=== PATIENT | female | born 1980 | race Caucasian/White ===

== ENCOUNTER 2018-05-01 16:20 | Emergency (ER) | END 2018-05-01 17:55 | disposition home or self-care (01) ==

== ENCOUNTER 2018-11-22 04:25 | Outpatient (CLI) | payer SELFPAY ==
[~2018-11-22] VITALS: Ht 154.9 cm; Wt 117.2 kg
[~2018-11-22 04:25] MED LIST: ACET500C5 PO
[2018-11-22 04:33] VITALS: Ht 154.9 cm; Wt 117.2 kg
[2018-11-22 04:46] VITALS: BP 139/75; PULSE 80; RESP 20
--- NOTE | 2018-11-22 07:37 | PN ---
Triage Information Date/Time Reason for visit: leg pain Weeks of Gestation 31+ /Para n/a Diabetes: none Hypertention: none Objective Vital Signs Date Temp Pulse Resp B/P (MAP) Pulse Ox O2 O2 Flow FiO2 Time Delivery Rate 11/22/18 99.1 80 20 139/75 Room Air 04:46 (96) Heart Rate: 140's Contractions: None Results/Medications Result Diagram: 11/22/18 0518 Results 24 hrs Laboratory Tests Test 11/22/18 04:40 11/22/18 05:18 Urine Color YELLOW Urine Clarity SLIGHTLY CLOUDY A Urine pH 6.0 Urine Specific [place] 1.024 Urine Ketones NEGATIVE Urine Nitrite NEGATIVE Urine Bilirubin NEGATIVE Urine Urobilinogen 1+ H Urine Leukocyte Esterase 2+ H Urine Microscopic RBC 79 H Urine Microscopic WBC 5 Urine Squamous Epithelial Cells FEW Urine Calcium Oxalate Crystals MANY A Urine Bacteria FEW A Urine Mucus FEW A Urine Hemoglobin 2+ H Urine Glucose NEGATIVE Urine Total Protein NEGATIVE Urine Opiates Screen Negative Urine Barbiturates Negative Urine Amphetamines Screen POSITIVE Urine Benzodiazepines Screen NEGATIVE Urine Cocaine Screen Negative Urine Cannabinoids NEGATIVE White Blood Count 11.2 H Red Blood Count 3.50 L Hemoglobin 9.0 L Hematocrit 28.8 L Mean Corpuscular Volume 82.3 Mean Corpuscular Hemoglobin 25.7 L Mean Corpuscular Hemoglobin Concent 31.3 L Red Cell Distribution Width 13.2 Platelet Count 209 Mean Platelet Volume 13.2 H Immature Granulocytes % 0.500 H Neutrophils % 72.9 Lymphocytes % 17.9 Monocytes % 7.4 Eosinophils % 1.0 Basophils % 0.3 Nucleated Red Blood Cells % 0.0 Immature Granulocytes # 0.060 H Neutrophils # 8.1 H Lymphocytes # 2.0 Monocytes # 0.8 Eosinophils # 0.1 Basophils # 0.0 Nucleated Red Blood Cells # 0.0 Hepatitis B Surface Antigen NEGATIVE HIV (1&2) Antibody NEGATIVE Disposition: Discharge Assessment/Plan Labs reviewed Ultrasound reviewed BPP 01/19 Patient is in [place] to leave the hospital to collect her stuff as she is homeless patient can be discharged after social service counselling Questions answered Precautions discussed Return to hospital in 2 days for NST BPP She needs to start care KIMI BONILLA M.D. Nov 22, 2018 07:37
== END 2018-11-22 08:22 | disposition home or self-care (01) ==
LOC: OBT 04:25 → L-D 04:25 → OBT 08:22
PROVIDERS: ATTEND Obstetrics & Gynecology
DX: O26.893 Other specified pregnancy related conditions, third trimester (principal); M79.606 Pain in leg, unspecified; O09.513 Supervision of elderly primigravida, third trimester; Z3A.31 31 weeks gestation of pregnancy; Z59.0 Homelessness
CPT/HCPCS: 76815; 76818; 80307; 81001; 85025; 86592; 86703; 86762; 86900; 86901; 87340; 87591; 93970; G0463

== ENCOUNTER 2018-11-28 01:55 | Inpatient (IN) | payer MEDICAID ==
[~2018-11-28] VITALS: Ht 154.9 cm; Wt 117.7 kg
[2018-11-28 02:00] VITALS: Ht 154.9 cm; Wt 117.7 kg
[2018-11-28 02:18] VITALS: BP 134/72; PULSE 72; RESP 19
[2018-11-28] MEDS ORDERED: SOD CHLORIDE 0.9% 1,000 ML IV SCH (03:10)
[2018-11-28] MEDS ORDERED: CEFTRIAXONE 1 GM INJ IM ONE (03:30)
[2018-11-28] MEDS ORDERED: CEFTRIAXONE 1 GM/50 ML (PMX) 50 ML IVPB SCH (03:30)
[2018-11-28] MEDS ORDERED: ACETAMINOPHEN 325 MG TAB PO PRN (03:30)
[2018-11-28] MEDS ORDERED: AL HYDROX/MG HYDROX/SIMETH 30 ML CUP PO ONE (04:00)
--- NOTE | 2018-11-28 04:15 | HP ---
Date/Time of Note Date/Time of Note DATE: 11/28/18 TIME: 04:10 OB - History Hx of Present Free Text/Dictation Patient is a 38-year-old 2 para 1 at 35 weeks of gestation with estimated date of delivery January 02, 2019 Patient is homeless and presents after using methamphetamine earlier today She is complaining of chest pain and abdominal pain, denies any shortness of breath, O2 sat 100% in room air Patient reports positive movement, denies vaginal bleeding or leaking fluid, denies uterine contractions She is complaining of bilateral lower extremity swelling and pain She reports of a history of urinary tract infections Estimated Due Date: Jan 02, 2019 : 2 Para: 1 Care: None Past Family/Social History * Past Medical, Surgical, Family history noncontributory to this admission OB Admission Exam Vital Signs Vital Signs Vital Signs Date Temp Pulse Resp B/P (MAP) Pulse Ox O2 O2 Flow FiO2 Time Delivery Rate 11/28/18 98.3 72 19 134/72 100 Room Air 02:18 (92) Physical Exam HEENT: WNL Heart: Rhythm Normal Lungs: Clear, Equal Abdomen: WNL Extremities: Normal Reflexes: Normal Heart Rate: 140's Accelerations: Accelerations Present Decelerations: No Decelerations Varibility: Moderate Contractions on Admission: None Last 72 hours Lab Results EKG within normal limits Toxicology - Last Results Test 11/28/18 02:24 Urine Opiates Screen NEGATIVE (NEGATIVE) Urine Barbiturates NEGATIVE (NEGATIVE) Urine Amphetamines Screen POSITIVE (NEGATIVE) Urine Benzodiazepines Screen NEGATIVE (NEGATIVE) Urine Cocaine Screen NEGATIVE (NEGATIVE) Urine Cannabinoids NEGATIVE (NEGATIVE) Urine Results - 72 Hrs Test 11/28/18 02:24 Urine Color YELLOW (YELLOW) Urine Clarity CLOUDY (CLEAR) A Urine pH 6.0 (5.0-9.0) Urine Specific [place] 1.021 (1.003-1.030) Urine Ketones NEGATIVE mg/dL (NEGATIVE) Urine Nitrite NEGATIVE mg/dL (NEGATIVE) Urine Bilirubin NEGATIVE mg/dL (NEGATIVE) Urine Urobilinogen 1+ mg/dL (NEGATIVE) H Urine Leukocyte Esterase 3+ Frederic/ul (NEGATIVE) H Urine Microscopic RBC 8 /HPF (0-5) H Urine Microscopic WBC 28 /HPF (0-5) H Urine Squamous Epithelial Cells MODERATE /HPF (FEW) Urine Bacteria FEW /HPF (NONE SEEN) A Urine Mucus FEW /HPF (NONE SEEN) A Urine Hemoglobin NEGATIVE mg/dL (NEGATIVE) Urine Glucose NEGATIVE mg/dL (NEGATIVE) Urine Total Protein NEGATIVE mg/dl (NEGATIVE) Hematology - 72 Hrs Test 11/28/18 04:39 Hematocrit 30.4 % (37.0-47.0) L Hemoglobin 9.4 g/dl (12.0-16.0) L Mean Corpuscular Hemoglobin 25.6 pg (29.0-33.0) L Mean Corpuscular Hemoglobin Concent 30.9 g/dl (32.0-37.0) L Mean Corpuscular Volume 82.8 fl (82.0-101.0) Mean Platelet Volume 13.5 fl (7.4-10.4) H Platelet Count 195 10^3/UL (140-415) Red Blood Count 3.67 10^6/ul (4.20-5.40) L Red Cell Distribution Width 13.2 % (11.5-14.5) White Blood Count 11.2 10^3/ul (4.8-10.8) H Chemistry Test 11/28/18 04:39 Sodium Level 138 mmol/L (135-144) Potassium Level 3.6 mmol/L (3.5-5.1) Chloride Level 107 mmol/L (97-110) Carbon Dioxide Level 28 mmol/L (21-31) Anion Gap 3 (5-13) L Blood Urea Nitrogen 9 mg/dl (7-20) Creatinine 0.57 mg/dl (0.44-1.00) Est Glomerular Filtrat Rate mL/min > 60 mL/min (>60) Glucose Level 102 mg/dl (70-220) Calcium Level 9.0 mg/dl (8.4-10.2) Total Bilirubin 0.3 mg/dl (0.2-1.3) Direct Bilirubin 0.00 mg/dl (0.00-0.20) Indirect Bilirubin 0.3 mg/dl (0-1.1) Aspartate Amino Transf (AST/SGOT) 36 IU/L (15-46) Alanine Aminotransferase (ALT/SGPT) 24 IU/L (13-69) Alkaline Phosphatase 186 IU/L (42-121) H Total Protein 6.2 g/dl (6.1-8.1) Albumin 2.9 g/dl (3.3-4.9) L Globulin 3.30 g/dl (1.3-3.2) H Albumin/Globulin Ratio 0.87 PROCEDURE: ULTRASOUND OBSTETRICAL CLINICAL INDICATION: 38-year-old female for size and date determination. TECHNIQUE: Multiple sonographic images of the pelvis were obtained. The images were reviewed on a PACS workstation. COMPARISON: Ultrasound biophysical profile obtained concurrently. FINDINGS: There is a single viable intrauterine gestation. Cardiac activity is present with 148 beats per minute. There is a breech presentation. Measurements were made in order to determine age. The results are as follows: BPD = 8.30 cm, HC = 30.82 cm, AC = 32.68 cm, FL = 6.85 cm. This yields and estimated gestational age of approximately 34 weeks 6 days. The estimated date of delivery is January 03, 2019. The EFW = 2727 +/- 409 g (6 lb 0 oz). The GP is greater than 97%. The placenta is fundal grade II. There is no evidence for an abruption or placenta previa. IMPRESSION: 1. Single viable intrauterine gestation of approximately 34 week 6 days with breech presentation. The estimated date of delivery is January 03, 2019. 2. The estimated weight is 2727 +/- 409 g (6 lb 0 oz). The GP is greater than 97%. .Guanaco Mccollum MD, MD Date Time Electronically viewed and signed by .Guanaco Mccollum MD, MD on 11/28/2018 05:11 .M/ CC: KAILYN ABREU MD [id number] PROCEDURE: ULTRASOUND BIOPHYSICAL PROFILE CLINICAL INDICATION: 38-year-old female with pelvic pain for viability. TECHNIQUE: Multiple sonographic images were obtained in order to perform a biophysical profile The images were reviewed on a PACS workstation. COMPARISON: None. FINDINGS: The cervix is closed with a length of 3.8 cm measured transvaginally. There is a single viable intrauterine gestation. There is a breech presentation. Cardiac activity is present at 150 beats per minute. The placenta is fundal grade II. The results of the biophysical profile are as follows: breathing movement = 2/2 Gross body movement = 2/2 tone = 2/2 Qualitative amniotic fluid volume = 2/2 Amniotic fluid index equals 12.5 cm. The maximal vertical pocket is 4.9 cm. This yields a biophysical profile score of 8/8. IMPRESSION: Biophysical profile score is 8/8. .Guanaco Mccollum MD, MD Date Time Electronically viewed and signed by .Guanaco Mccollum MD, on 11/28/2018 05:08 .M/ CC: KAILYN ABREU MD [phone] PROCEDURE: Ultrasound of the bilateral lower extremity venous system. CLINICAL INDICATION: Bilateral leg pain and swelling. TECHNIQUE: Naranjo scale with and without compression, color doppler, spectral doppler of the venous system of the bilateral lower extremities was performed. Venous augmentation maneuvers were utilized. COMPARISON: US EXTREMITY 11/22/2018 FINDINGS: RIGHT: Common femoral vein: Patent and compressible. Femoral vein: Patent and compressible. Popliteal vein: Patent and compressible. Visualized calf veins: Patent and compressible. Soft tissues: Normal LEFT: Common femoral vein: Patent and compressible. Femoral vein: Patent and compressible. Popliteal vein: Patent and compressible. Visualized calf veins: Patent and compressible. Soft tissues: Normal IMPRESSION: 1. No evidence of deep vein thrombosis. RPTAT: [facility] Physician Jose Date Time Electronically viewed and signed by Physician Jose on 11/28/2018 08:09 JH/ CC: KAILYN ABREU MD [id number] OB Assessment/Plan Reason for admission: other (35 weeks of gestation with urinary tract infection) Other plan: Admit to antepartum IV fluids IV antibiotics Urine culture to be done Social service consult KAILYN ABREU MD Nov 28, 2018 04:15
--- NOTE | 2018-11-28 04:19 | TRIAGE ---
OB Triage Datetime Report Generated by CPN: 11/28/2018 04:19 Datetime: 11/28/2018 04:00 Labor Evaluation Frequency: none Monitor Mode: External Heart Rate FHR Baseline Rate: 135 Monitor Mode: External US Variability: Moderate 6-25 bpm Accelerations: 15X15 Decelerations: None Category: Category I Datetime: 11/28/2018 03:04 Resting Tone Kamrar: Relaxed Datetime: 11/28/2018 03:00 Labor Evaluation Frequency: none Monitor Mode: External Heart Rate FHR Baseline Rate: 155 Monitor Mode: External US Variability: Moderate 6-25 bpm Accelerations: 15X15 Comments: Loss of contact while u/s being done. Some loss of contact d/t excessive maternal movemen t Datetime: 11/28/2018 02:55 Resting Tone Kamrar: Relaxed Contraction Comments: Abdomen soft. No contraction palpated Pain Assessment Pain Scale: 5 Pain Presence: Intermittent Pain Type: Pressure Pain Location: Abdomen Pain Relief Measures: Comfort Measures Datetime: 11/28/2018 02:18 Stage of : OB Triage Assessment Type: Triage Maternal Assessment Level of Consciousness: Keenly Alert, Responsive Headache: Denies Blurred Vision: No Respiratory Effort: Unlabored; Regular Rhythm; Equal Expansion Breath Sounds, Left: Clear and Equal Breath Sounds, Right: Clear and Equal Nausea/Vomiting: Denies RUQ Epigastric Pain: Present Lower Extremities Edema: Bilateral Lower Extremities Degree: 3+ (Annotations: pitting) Upper Extremities Edema: None Degree: None Facial Edema: None Temperature Route: Oral Fall Risk Assessment History of Falling: (0) No Secondary Diagnosis: (0) No Ambulatory Aid: (0) Bedrest/Nurse Assist IV Therapy: (0) No Gait: (0) Normal/Bedrest/Immobile Mental Status: (0) Oriented to Own Ability Fall Score: 0 Fall Risk Score Definition: No Risk: No action required Comments: Patient states she feels active movement Pain Assessment Pain Scale: 9 Pain Presence: Intermittent Pain Type: Pressure Pain Location: Abdomen (Annotations: upper abdomen) Pain Relief Measures: Comfort Measures Datetime: 11/28/2018 02:16 Monitor Mode: External (Annotations: applied) Resting Tone Kamrar: Relaxed Contraction Comments: Abdomen soft. No contractions palpated Monitor Mode: External US (Annotations: applied) Datetime: 11/28/2018 02:03 Time of Arrival: 11/28/2018 01:55 EGA: 35.0 Arrived By: Wheelchair Arrived From: Home Chief Complaint: Chest pain, upper abdominal pain Movement: Present Contractions: Denies/Absent Rupture of Membranes: Denies Vaginal Bleeding: None Vaginal Discharge: Denies Recent Sexual Intercouse: Denies Abdominal Trauma: Not Applicable Patient Complaints: Other Additional Patient Complaints: patient last used methampetamines 4hours ago Time Provider Notified: 11/28/2018 02:03 Provider Notified: Dr. Casas Initial Plan: EFM x2 Datetime: 11/22/2018 08:01 Stage of : OB Triage Datetime: 11/22/2018 07:56 Labor Evaluation Frequency: 0 Monitor Mode: External Pattern: Normal: <= 5 Contractions in 10 Minutes Resting Tone Kamrar: Relaxed Heart Rate FHR Baseline Rate: 135 Monitor Mode: External US Variability: Moderate 6-25 bpm Accelerations: 10X10 Decelerations: None Category: Category I Pain Assessment Pain Scale: 0 Pain Presence: None/Denies Pain Type: N/A Pain Goal: 3 Pain Relief Measures: Comfort Measures Datetime: 11/22/2018 07:22 Stage of : OB Triage Datetime: 11/22/2018 07:07 Labor Evaluation Frequency: 0 Monitor Mode: External Pattern: Normal: <= 5 Contractions in 10 Minutes Resting Tone Kamrar: Relaxed Heart Rate FHR Baseline Rate: 135 Monitor Mode: External US Variability: Moderate 6-25 bpm Accelerations: 10X10 Decelerations: None Category: Category I Pain Assessment Pain Scale: 0 Pain Presence: None/Denies Pain Type: N/A Pain Goal: 3 Pain Relief Measures: Comfort Measures Datetime: 11/22/2018 07:00 Labor Evaluation Frequency: 0 Monitor Mode: External Pattern: Normal: <= 5 Contractions in 10 Minutes Heart Rate FHR Baseline Rate: 140 Monitor Mode: External US Variability: Moderate 6-25 bpm Accelerations: Prolonged Decelerations: None Datetime: 11/22/2018 06:48 Monitor Mode: External US Datetime: 11/22/2018 06:00 Labor Evaluation Frequency: 0 Monitor Mode: External Pattern: Normal: <= 5 Contractions in 10 Minutes Heart Rate FHR Baseline Rate: 145 Monitor Mode: External US Variability: Moderate 6-25 bpm Accelerations: 15X15 Decelerations: None Category: Category I Datetime: 11/22/2018 05:00 Labor Evaluation Frequency: 0 Monitor Mode: External Pattern: Normal: <= 5 Contractions in 10 Minutes Heart Rate FHR Baseline Rate: 145 Monitor Mode: External US Variability: Moderate 6-25 bpm Decelerations: None Datetime: 11/22/2018 04:49 Monitor Mode: External Monitor Mode: External US Comments: MONITORS APPLIED. AUDIBLE FHT Datetime: 11/22/2018 04:46 Stage of : OB Triage Assessment Type: Triage Maternal Assessment Level of Consciousness: Fully Conscious DTR's/Clonus: DTRs 1+; No Clonus Headache: Denies Blurred Vision: No Respiratory Effort: Unlabored; Regular Rhythm; Equal Expansion Breath Sounds, Left: Clear and Equal Breath Sounds, Right: Clear and Equal Nausea/Vomiting: Denies RUQ Epigastric Pain: Denies Lower Extremities Edema: Bilateral Lower Extremities Degree: 3+ Upper Extremities Edema: Bilateral Upper Extremities Degree: NONE PITTING Facial Edema: None Temperature Route: Oral Fall Risk Assessment History of Falling: (0) No Secondary Diagnosis: (0) No Ambulatory Aid: (0) Bedrest/Nurse Assist IV Therapy: (0) No Gait: (0) Normal/Bedrest/Immobile Mental Status: (0) Oriented to Own Ability Fall Score: 0 Fall Risk Score Definition: No Risk: No action required Pain Assessment Pain Scale: 5 Pain Presence: Intermittent Pain Type: Ache Pain Goal: 0 Pain Relief Measures: Comfort Measures Pain Assessment Comments: BILATERAL LEGS; PT STATES SHE OCCASIONALLY FEELS ABDOMINAL PAIN ABOUT TWI CE A DAY WHEN SHE IS WALKING BUT NONE AT THIS TIME Datetime: 11/22/2018 04:38 EGA: 34.1 Datetime: 11/22/2018 04:37 Time of Arrival: 11/22/2018 04:23 Arrived By: Wheelchair Arrived From: Home Chief Complaint: swollen feet Movement: Present Contractions: Denies/Absent Rupture of Membranes: Denies Vaginal Bleeding: None Vaginal Discharge: Denies Recent Sexual Intercouse: Denies Abdominal Trauma: Not Applicable Patient Complaints: Dependent Edema Additional Patient Complaints: occasional abdominal pains Time Provider Notified: 11/22/2018 05:00 Provider Notified: DANTE Initial Plan: CEFM, UA, UDS, EFW, BPP, DOPPLER OF BILATERAL LOWER EXTREMITIES, ERP LABS, G_C OF URI NE
[2018-11-28] MEDS ORDERED: NITROFURANTOIN (SR) 100 MG CAP PO ONE (06:00)
[2018-11-28] MEDS ORDERED: NITROFURANTOIN (SR) 100 MG CAP PO SCH ×2 (09:00→21:00)
[2018-11-28] MEDS ORDERED: PRENATAL VITAMIN PO SCH (09:00)
--- NOTE | 2018-11-28 13:17 | DS ---
Date/Time of Note Date/Time of Note DATE: 11/28/18 TIME: 13:15 Obstetrical Discharge Record Final Diagnosis Final Diagnosis: not delivered Other Final Diagnosis 38-year-old 2 para 1 at 35 weeks of gestation with estimated date of delivery January 02, 2019 Patient was admitted with diagnosis of urinary tract infection She refused IV antibiotics Patient received p.o. antibiotics All lab test and imaging studies were all within normal limits Patient remained stable and afebrile Social service consult was done Prescription for Macrobid was given Patient was discharged home and instructed to follow-up with [facility] in 1 to 2 days Condition on Discharge Physical Assessment Last Vitals: VS - Last 72 Hours, by Label Date Temp Pulse Resp B/P (MAP) Pulse Ox O2 O2 Flow FiO2 Time Delivery Rate 11/28/18 98.3 72 19 134/72 100 Room Air 02:18 (92) Voiding: Yes Bowel Movement: Yes Breast: Soft, non-tender Fundus: Other (Gravid) Calf Tenderness: No Patient Condition: Good KAILYN ABREU MD Nov 28, 2018 13:17
--- NOTE | 2018-11-29 15:01 | RADRPT ---
Vent Rate: 77 bpm RR Interval: 776 msec FL Interval: 133 msec QRS Duration: 97 msec QT Interval: 366 msec QTC Interval: 415 msec P-R-T Lavina: 45 - 30 - 11 degrees Sinus rhythm...normal P axis, V-rate 50- 99 Electronically Signed By: Kevin Peres
== END 2018-11-28 09:45 | disposition home or self-care (01) | DRG 832 ==
LOC: OBT 01:55 → L-D 01:55 → OBT 03:06
PROVIDERS: ADMIT Obstetrics & Gynecology Gynecology; ATTEND Obstetrics & Gynecology Gynecology
DX: O23.43 Unspecified infection of urinary tract in pregnancy, third trimester (principal); O99.323 Drug use complicating pregnancy, third trimester; Z3A.35 35 weeks gestation of pregnancy; Z59.0 Homelessness; F15.90 Other stimulant use, unspecified, uncomplicated; O32.1XX0 Maternal care for breech presentation, not applicable or unspecified
CPT/HCPCS: 36415; 76815; 76817; 76818; 80053; 80307; 81001; 85025; 86592; 86900; 86901; 87086; 93005; 93970; G0463; J0696; J7030

== ENCOUNTER 2018-12-11 01:46 | Outpatient (CLI) | payer MEDICAID ==
--- NOTE | 2018-12-11 06:18 | PN ---
Triage Information Date/Time 12/11/18 Reason for visit: Uterine contractions Weeks of Gestation 36w6d /Para Diabetes: none Hypertention: none Objective Heart Rate: 130's Heart Rate Comments CAT I Contractions: >10 Minutes Apart Exam pitting edema turner Results/Medications Results 24 hrs Laboratory Tests Test 12/11/18 02:00 Urine Color YELLOW Urine Clarity CLOUDY A Urine pH 6.0 Urine Specific [place] 1.028 Urine Ketones NEGATIVE Urine Nitrite NEGATIVE Urine Bilirubin NEGATIVE Urine Urobilinogen 1+ H Urine Leukocyte Esterase 2+ H Urine Microscopic RBC 2 Urine Microscopic WBC 11 H Urine Squamous Epithelial Cells MODERATE Urine Bacteria FEW A Urine Mucus MODERATE Urine Hemoglobin NEGATIVE Urine Glucose NEGATIVE Urine Total Protein 1+ H Urine Opiates Screen NEGATIVE Urine Barbiturates NEGATIVE Urine Amphetamines Screen POSITIVE Urine Benzodiazepines Screen NEGATIVE Urine Cocaine Screen NEGATIVE Urine Cannabinoids NEGATIVE Imaging Results BPP 8 TREY 11.9 EFW 3143 gm Disposition: Discharge Assessment/Plan A IUP 36w6d UTI NIL P discharge home with Rx cephalexin 500mg Q6hr #28 RTH prn with routine labor instructions addendum : found to be allergic to penicillin (rash) called pt by RN , no answer left message cross reaction only 3% most likely ok since it was rash JOE CARVALHO MD Dec 11, 2018 06:18
== END 2018-12-11 04:36 | disposition home or self-care (01) ==
LOC: OBT 01:46 → L-D 01:47 → OBT 04:36
PROVIDERS: ATTEND Emergency Medicine
DX: O62.9 Abnormality of forces of labor, unspecified (principal); O09.523 Supervision of elderly multigravida, third trimester; Z3A.36 36 weeks gestation of pregnancy
CPT/HCPCS: 76815; 76818; 80307; 81001; 87086; G0463

== ENCOUNTER 2018-12-11 23:35 | Inpatient (IN) | payer MEDICAID ==
[~2018-12-11] VITALS: Ht 154.9 cm; Wt 122.5 kg
[2018-12-11 23:51] VITALS: BP_SYST 118; BP_SYST 145; BP_DIAS 62; BP_DIAS 66; PULSE 76; PULSE 83; RESP 18; Ht 154.9 cm; Wt 122.5 kg
[2018-12-12] MEDS ORDERED: LACTATED RINGER'S 1,000 ML IV SCH ×3 (00:33→13:00)
--- NOTE | 2018-12-12 00:47 | PREAC ---
Date/Time of Note Date/Time of Note DATE: 12/12/18 TIME: 00:45 Anesthesia Eval and Record Evaluation Time Pre-Procedure Interview DATE: 12/12/18 TIME: 00:45 Age 38 Sex female NPO: 2 hrs Preoperative diagnosis Repeat in Labor and Breech Planned procedure Past Medical History Past Medical History: Includes : : (2), Para: (1), Gestational age: (34) Surgery & Anesthesia Issues No known issue Meds Anticoagulation: No Beta Jalen within 24 hr: No Reason Beta Jalen not given: Pt. not on B-Jalen No Active Prescriptions or Reported Meds Current Medications Lactated Ringer's 1,000 ml @ 125 mls/hr Q8H IV ; Start 12/12/18 at 00:33; Status UNV Oxytocin/Lactated Ringer's 500 ml @ 125 mls/hr POST IV ; Start 12/12/18 at 01:00; Status UNV Oxytocin/Lactated Ringer's 500 ml @ 0 mls/hr ONCE PRN IV .VAGINAL BLEEDING; Start 12/12/18 at 01:00; Status UNV Methylergonovine Maleate (Methergine) 0.2 mg ONCE PRN IM .VAGINAL BLEEDING; Start 12/12/18 at 01:00; Status UNV Carboprost Tromethamine (Hemabate) 250 mcg ONCE PRN IM .VAGINAL BLEEDING; Start 12/12/18 at 01:00; Status UNV Misoprostol (Cytotec) 1,000 mcg ONCE PRN MO .VAGINAL BLEEDING; Start 12/12/18 at 01:00; Status UNV Azithromycin 250 ml @ 250 mls/hr ONCE IV ; Start 12/12/18 at 01:00; Status UNV Cefazolin Sodium 3 gm/Dextrose 100 ml @ 100 mls/hr ONCE ONCE IV ; Start 12/12/18 at 01:00; Stop 12/12/18 at 01:59; Status UNV Meds reviewed: Yes Allergies Coded Allergies: Penicillins (Verified Allergy, Mild, RASH, 11/28/18) Allergies Reviewed: Yes Labs/Studies Labs Reviewed: Reviewed by anesthesiologist test: Positive Studies: ECG (n/a), CXR (n/a) Pre-procedure Exam Last vitals Vital Signs Date Temp Pulse Resp B/P (MAP) Pulse Ox O2 O2 Flow FiO2 Time Delivery Rate 6/30/19 98.2 83 18 145/66 23:51 (92) 12/11/18 Room Air 23:51 Airway: Adequate mouth opening, Adequate thyromental dist Mallampati: Mallampati II Teeth: Normal Lung: Normal Heart: Normal ASA Physical Status ASA physical status: 2 Emergency: E Planned Anesthetic Neuraxial: Spinal Planned Pain Management Sub-arachniod narcotics, Parenteral pain med Pre-operative Attestations Prior to commencing anesthesia and surgery, the patient was re-evaluated, there was verification of: *The patient's identity *The results of appropriate recent lab work and preoperative vital signs *The above evaluation not changing prior to induction *Anesthetic plan, risk benefits, alternative and complications discussed with patient/family; questions answered; patient/family understands, accepts and wishes to proceed. ANA WHITEHEAD MD Dec 12, 2018 00:47
[2018-12-12] MEDS ORDERED: OXYTOCIN 10 UNIT INJ ONE (00:49)
[2018-12-12] MEDS ORDERED: PHENYLephrine (100 MCG/ML) 10ML SYG ONE ×2 (00:49→02:23)
[2018-12-12] MEDS ORDERED: morphine SULFATE/PF (10 MG/10 ML) INJ ONE (00:49)
--- NOTE | 2018-12-12 00:50 | HP ---
Date/Time of Note Date/Time of Note DATE: 12/12/18 TIME: 00:43 OB - History Hx of Present Chief Complaint: contractions and SROM Estimated Due Date: Jan 05, 2019 : 3 Para: 1 Spontaneous : 1 Therapeutic : 0 Care: None Ultrasounds: No ultrasounds Obstetrical Complications: Other (no care) Medical Complications: None Other Concerns: amphetamine use Past Family/Social History * PMHx unremarkable PSHx FHx non contributory Allergy Penicillin rash GBS Status: Unknown OB Admission Exam Vital Signs Vital Signs Vital Signs Date Temp Pulse Resp B/P (MAP) Pulse Ox O2 O2 Flow FiO2 Time Delivery Rate 12/11/18 98.2 83 18 145/66 23:51 (92) 12/11/18 Room Air 23:51 Physical Exam HEENT: WNL Heart: Rhythm Normal Lungs: Clear, Equal Abdomen: WNL Extremities: Normal Reflexes: Normal Cervical Dilatation: 4cm Effacement: 100% Station: -1 Membranes: Ruptured Amniotic Fluid: Thin Meconium Heart Rate: 120's Accelerations: Accelerations Present Decelerations: No Decelerations Varibility: Moderate Contractions on Admission: < 5 Minutes Apart OB Assessment/Plan Reason for admission: section, labor, rupture of membranes Plan: Section ANIYAH VALERA MD Dec 12, 2018 00:50
[2018-12-12] MEDS ORDERED: OXYTOCIN 30 UNITS/LR 500 ML IV SCH ×2 (01:00→05:18)
[2018-12-12] MEDS ORDERED: OXYTOCIN 30 UNITS/LR 500 ML IV PRN ×2 (01:00→05:30)
[2018-12-12] MEDS ORDERED: ONDANSETRON 4 MG INJ IV ONE (01:00)
[2018-12-12] MEDS ORDERED: MISOPROSTOL 200 MCG TAB PR PRN ×2 (01:00→05:30)
[2018-12-12] MEDS ORDERED: CEFAZOLIN 3 GM in DEXTROSE 5% 100 ML IV ONE (01:00)
[2018-12-12] MEDS ORDERED: METHYLERGONOVINE 0.2 MG INJ IM PRN (01:00)
[2018-12-12] MEDS ORDERED: AZITHROMYCIN 500MG/NS (PMX) 250 ML IV SCH (01:00)
[2018-12-12] MEDS ORDERED: CLINDAMYCIN 900 MG/D5W (PMX) 50 ML IVPB SCH (01:00)
[2018-12-12] MEDS ORDERED: CARBOPROST 250 MCG INJ IM PRN ×2 (01:00→05:30)
[2018-12-12] MEDS ORDERED: CITRIC ACID/NA CITRATE 30 ML CUP PO ONE (01:00)
[2018-12-12] MEDS ORDERED: DEXAMETHASONE 4 MG/ML 1 ML INJ ONE (01:49)
[2018-12-12] MEDS ORDERED: KETOROLAC 30 MG INJ ONE (01:49)
[2018-12-12] MEDS ORDERED: METOCLOPRAMIDE 10 MG INJ ONE (01:49)
[2018-12-12] MEDS ORDERED: NALBUPHINE HCL (10 MG/1 ML) INJ IV PRN (02:00)
[2018-12-12] MEDS ORDERED: DIPHENHYDRAMINE 50 MG INJ IV PRN (02:00)
[2018-12-12] MEDS ORDERED: HYDROmorphONE 0.5 MG/0.5 ML SYG IV PRN ×2 (02:00)
[2018-12-12] MEDS ORDERED: HYDROCODONE/APAP (5/325) TAB PO PRN (02:00)
[2018-12-12] MEDS ORDERED: ONDANSETRON 4 MG INJ IV PRN (02:00)
[2018-12-12] MEDS ORDERED: NALOXONE (0.4 MG/ML) INJ IV PRN (02:00)
[2018-12-12] MEDS ORDERED: morphine 2 MG INJ IV PRN ×2 (02:00)
[2018-12-12] MEDS ORDERED: ACETAMINOPHEN 500 MG TAB PO PRN (02:00)
[2018-12-12] MEDS ORDERED: KETOROLAC 30 MG INJ IV PRN (02:00)
--- NOTE | 2018-12-12 02:40 | PAC ---
Date/Time of Note Date/Time of Note DATE: 12/12/18 TIME: 02:39 Post-Anesthesia Notes Post-Anesthesia Note Last documented vital signs Vital Signs Date Temp Pulse Resp B/P (MAP) Pulse Ox O2 O2 Flow FiO2 Time Delivery Rate 12/12/18 98.0 83 18 145/66 97 room air 23:51 (92) 12/11/18 Room Air 23:51 Activity: WNL Respiratory function: WNL Cardiovascular function: WNL Mental status: Baseline Pain reasonably controlled: Yes Hydration appropriate: Yes Nausea/Vomiting absent: Yes ANA WHITEHEAD MD Dec 12, 2018 02:40
--- NOTE | 2018-12-12 02:52 | OPPN ---
Date/Time of Note Date/Time of Note DATE: 12/12/18 TIME: 02:50 Operative Report Planned Procedure Procedure date Dec 12, 2018 Procedure(s) Repeat c/s and lysis of adhesions Performed by Aniyah Valera MD Form Setter Helper: BEAN FRIED 2nd Form Setter Helper none Anesthesiologist: ANA WHITEHEAD MD Pre-procedure diagnosis Previous c/s in labor [id number] Anesthesia Type: [id number] spinal Post-Procedure Post-procedure diagnosis same, pelvic adhesions Findings Live Baby [], Apgars [] and [], weight [], position [], [] presentation []cord. Estimated Blood Loss: other (600 ml) Specimen(s) Placenta Grafts/Implant(s) none Complication(s) none ANIYAH VALERA MD Dec 12, 2018 02:52
--- NOTE | 2018-12-12 03:48 | OPR ---
DATE OF OPERATION: 12/12/2018 PREOPERATIVE DIAGNOSES: 1. at 36 weeks and 4 days with previous section, in labor and spontaneous rupture of membranes. 2. Breech presentation. POSTOPERATIVE DIAGNOSES: 1. at 36 weeks and 4 days with previous section, in labor and spontaneous rupture of membranes. 2. Breech presentation. 3. Pelvic adhesions. OPERATION: Repeat low transverse section and lysis of adhesions. SURGEON: Aniyah Xiao MD CREATIVE TECHNOLOGIST: Dr. Fried. ANESTHESIA: Spinal. ANESTHESIOLOGIST: Dr. Velazquez. PROCEDURE: The patient was taken to the operating room and placed on the operating table. After suc cessful spinal anesthesia was given, the patient was placed in supine position. The area was prepare d and draped in the usual sterile fashion. Spinal anesthesia was tested and was satisfactory. Using a scalpel, a Pfannenstiel incision was made about 2 fingerbreadths above the symphysis pubis. The i ncision was carried down to the fascia. The fascia was incised and extended bilaterally with Esparza sc issors. Two Jazzmine's were used to separate the fascia from the muscle. The muscle was dissected angela n to peritoneum. The peritoneum was secured with 2 Kellys and incised with Metzenbaum scissors. Upo n entry into the peritoneal cavity, there were dense pelvic adhesions. In order to access the anteri or aspect of the uterus, sharp lysis of adhesions was performed. Using scalpel, a small transverse i ncision was made on the lower segment of the uterus. Upon entry into the uterine cavity, bandage sci ssors were inserted to extend the incision bilaterally, curved up. Baby was delivered from right sac ral anterior position. After suctioning clear of amniotic fluid, the baby was handed off to the neon atal team in attendance. Apgars were 5 at 1 minute and 9 at 5 minutes, and 9 at 10 minutes. The cassandra gregg was then delivered without difficulty. The uterus was closed with #1 Monocryl continuous ned d. After assuring hemostasis, both ovaries and tubes were inspected and looked normal. The peritone um was closed with 0 chromic continuous. The fascia was closed with #1 Vicryl continuous in 2 segmen ts. Subcutaneous tissue was reapproximated with 2-0 plain. The skin was closed with izabela. Estim ated blood loss was 600 mL. All counts were correct. Dictated By: ANIYAH XIAO MD GD/NTS Conf#: [id number] DID#: [id number] CC: BEAN FRIED MD;*EndCC*
[2018-12-12 05:00] VITALS: BP 130/64; PULSE 71; RESP 16
[2018-12-12] MEDS ORDERED: LANOLIN HPA 1 PKT TOP PRN (05:30)
[2018-12-12] MEDS: IBUPROFEN 800 MG TAB PO SCH ×3 (06:00→22:00)
--- NOTE | 2018-12-12 06:35 | TRIAGE ---
OB Triage Datetime Report Generated by CPN: 12/12/2018 06:35 Datetime: 12/12/2018 04:35 Stage of : Recovery Pain Assessment Pain Scale: 0 Pain Presence: None/Denies Pain Type: N/A Datetime: 12/12/2018 04:20 Stage of : Recovery Pain Assessment Pain Scale: 0 Pain Presence: None/Denies Pain Type: N/A Datetime: 12/12/2018 04:05 Stage of : Recovery Pain Assessment Pain Scale: 0 Pain Presence: None/Denies Pain Type: N/A Datetime: 12/12/2018 03:50 Stage of : Recovery Pain Assessment Pain Scale: 0 Pain Presence: None/Denies Pain Type: N/A Datetime: 12/12/2018 03:35 Stage of : Recovery Pain Assessment Pain Scale: 0 Pain Presence: None/Denies Pain Type: N/A Datetime: 12/12/2018 03:20 Stage of : Recovery Pain Assessment Pain Scale: 0 Pain Presence: None/Denies Pain Type: N/A Datetime: 12/12/2018 03:05 Stage of : Recovery Pain Assessment Pain Scale: 0 Pain Presence: None/Denies Pain Type: N/A Datetime: 12/12/2018 02:50 Stage of : Recovery Pain Assessment Pain Scale: 0 Pain Presence: None/Denies Pain Type: N/A Datetime: 12/12/2018 02:35 Stage of : Recovery Temperature Route: Oral Pain Assessment Pain Scale: 0 Pain Presence: None/Denies Pain Type: N/A Datetime: 12/12/2018 01:41 Pain Assessment Pain Scale: 10 Datetime: 12/12/2018 01:10 Stage of : Labor Assessment Type: Admission Assessment Time of Arrival: 12/11/2018 23:30 EGA: 36.3 Arrived By: Ambulance Arrived From: Home Chief Complaint: SROM AT 2220 AND CONTRACTIONS Movement: Present Contractions: Regular Time Contractions Began: 12/12/2018 23:20 Contractions: Q10MIN PER PT Rupture of Membranes: Ruptured Vaginal Bleeding: None Vaginal Discharge: Denies Recent Sexual Intercouse: Denies Abdominal Trauma: Not Applicable Patient Complaints: Contractions Time Provider Notified: 12/12/2018 00:05 Provider Notified: DELSHAD Initial Plan: CEFM, ROM+, SVE, NITRAZINE Maternal Assessment Level of Consciousness: Keenly Alert, Responsive DTR's/Clonus: DTRs 2+; No Clonus Headache: Denies Blurred Vision: No Respiratory Effort: Unlabored; Regular Rhythm; Equal Expansion Breath Sounds, Left: Clear and Equal Breath Sounds, Right: Clear and Equal Nausea/Vomiting: Denies RUQ Epigastric Pain: Denies Lower Extremities Edema: Bilateral Lower Extremities Degree: 2+ Upper Extremities Edema: Bilateral Upper Extremities Facial Edema: None Fall Risk Assessment History of Falling: (0) No Secondary Diagnosis: (0) No Ambulatory Aid: (0) Bedrest/Nurse Assist IV Therapy: (0) No Gait: (0) Normal/Bedrest/Immobile Mental Status: (0) Oriented to Own Ability Fall Score: 0 Fall Risk Score Definition: No Risk: No action required Pain Assessment Pain Scale: 10 Pain Presence: Intermittent Pain Type: Sharp; Contraction Pain Location: Abdomen; Back Pain Goal: 5 Amniotic Fluid Color: Light Meconium Amniotic Fluid Amount: Small Datetime: 12/12/2018 01:00 Stage of : Labor Labor Evaluation Frequency: 1-3 Monitor Mode: External Duration (sec)2399: 60-80 Quality: Moderate Pattern: Normal: <= 5 Contractions in 10 Minutes Resting Tone [place]: Relaxed Heart Rate FHR Baseline Rate: 155 Monitor Mode: External US Variability: Moderate 6-25 bpm Accelerations: 10X10 Decelerations: None Category: Category I Pain Assessment Pain Scale: 10 Pain Presence: Intermittent Pain Type: Crushing; Sharp Pain Location: Abdomen; Back Pain Goal: 5 Pain Relief Measures: Comfort Measures Datetime: 12/12/2018 00:39 Maternal Assessment Level of Consciousness: Keenly Alert, Responsive Datetime: 12/12/2018 00:30 Stage of : OB Triage Vaginal Exam Dilatation (cms): 5.0 Effacement (%): 90 Station: -2 Exam By: MARQUITA Membranes Rupture Method: Spontaneous Amniotic Fluid Color: Light Meconium Amniotic Fluid Amount: Small Cervix, Consistency: Soft Cervix, Position: Anterior Presentation 'A': Breech Datetime: 12/12/2018 00:22 Amniotic Fluid Color: Heavy Meconium Nitrazine: Positive Datetime: 12/12/2018 00:00 Labor Evaluation Frequency: X2 Monitor Mode: External Duration (sec)2399: 40-100 Pattern: Normal: <= 5 Contractions in 10 Minutes Heart Rate FHR Baseline Rate: 155 Monitor Mode: External US Variability: Moderate 6-25 bpm Accelerations: 15X15 Decelerations: None Comments: LOSS OF CONTACT Datetime: 12/11/2018 23:51 Stage of : OB Triage Assessment Type: Triage Maternal Assessment Level of Consciousness: Keenly Alert, Responsive DTR's/Clonus: No Clonus Headache: Denies Blurred Vision: No Respiratory Effort: Unlabored; Regular Rhythm; Equal Expansion Breath Sounds, Left: Clear and Equal Breath Sounds, Right: Clear and Equal Nausea/Vomiting: Denies RUQ Epigastric Pain: Denies Lower Extremities Edema: Bilateral Lower Extremities Degree: Pitting Upper Extremities Edema: None Degree: None Facial Edema: None Temperature Route: Oral Fall Risk Assessment History of Falling: (0) No Secondary Diagnosis: (0) No Ambulatory Aid: (0) Bedrest/Nurse Assist IV Therapy: (0) No Gait: (0) Normal/Bedrest/Immobile Mental Status: (0) Oriented to Own Ability Fall Score: 0 Fall Risk Score Definition: No Risk: No action required Pain Assessment Pain Scale: 8 Pain Presence: Intermittent Pain Type: Contraction Pain Location: Back Pain Goal: 0 Pain Relief Measures: Comfort Measures Datetime: 12/11/2018 23:50 Monitor Mode: External US Comments: MONITOR APPLIED; AUDIBLE FHT Datetime: 12/11/2018 04:25 Pain Assessment Pain Scale: 0 Pain Presence: None/Denies Pain Type: N/A Pain Goal: 3 Pain Assessment Comments: PT IN HEAVY SLEEP; RN AT BEDSIDE ATTEMPTING TO WAKE PT UP Datetime: 12/11/2018 04:23 Labor Evaluation Frequency: NONE Monitor Mode: External Resting Tone [place]: Relaxed Heart Rate FHR Baseline Rate: 145 Monitor Mode: External US Variability: Moderate 6-25 bpm Accelerations: 15X15 Decelerations: None Datetime: 12/11/2018 03:30 Labor Evaluation Frequency: NONE Monitor Mode: External Resting Tone [place]: Relaxed Heart Rate FHR Baseline Rate: 145 Monitor Mode: External US Variability: Moderate 6-25 bpm Accelerations: 15X15 Decelerations: None Category: Category I Pain Assessment Comments: PT IN HEAVY SLEEP; DOES NOT AROUSE EASILY Datetime: 12/11/2018 02:30 Labor Evaluation Frequency: IRREGULAR Monitor Mode: External Duration (sec)2399: 50-70 Quality: Mild Resting Tone [place]: Relaxed Heart Rate FHR Baseline Rate: 150 Monitor Mode: External US Variability: Moderate 6-25 bpm Accelerations: 15X15 Decelerations: None Category: Category I Datetime: 12/11/2018 01:56 Time of Arrival: 12/11/2018 01:15 EGA: 36.3 Arrived By: Wheelchair Arrived From: Emergency Dept Chief Complaint: PT PRESENTS TO TRIAGE W C/O OF 'S SINCE 0000; PT STATES HER LEGS ARE STILL SWOLL EN AND PAINFUL; PT ADMITS TO USING METH THIS AM BUT THAT SHE IS TRYING TO STOP Movement: Present Contractions: Irregular Time Contractions Began: 12/11/2018 00:00 Contractions: Q 10 MIN Rupture of Membranes: Denies Vaginal Bleeding: None Vaginal Discharge: Denies Recent Sexual Intercouse: Denies Abdominal Trauma: Not Applicable Patient Complaints: Contractions Initial Plan: EFM Datetime: 12/11/2018 01:51 Stage of : OB Triage Assessment Type: Triage Maternal Assessment Level of Consciousness: Keenly Alert, Responsive DTR's/Clonus: DTRs 2+; No Clonus Headache: Denies Blurred Vision: No Respiratory Effort: Unlabored; Regular Rhythm; Equal Expansion Breath Sounds, Left: Clear and Equal Breath Sounds, Right: Clear and Equal Nausea/Vomiting: Denies RUQ Epigastric Pain: Denies Lower Extremities Edema: Bilateral Lower Extremities Degree: Pitting Upper Extremities Edema: None Degree: None Facial Edema: None Temperature Route: Oral Fall Risk Assessment History of Falling: (0) No Secondary Diagnosis: (0) No Ambulatory Aid: (0) Bedrest/Nurse Assist IV Therapy: (0) No Gait: (0) Normal/Bedrest/Immobile Mental Status: (0) Oriented to Own Ability Fall Score: 0 Fall Risk Score Definition: No Risk: No action required Pain Assessment Pain Scale: 9 Pain Presence: Intermittent Pain Type: Contraction Pain Location: Abdomen Pain Goal: 3 Datetime: 11/28/2018 09:00 Monitor Mode: External US Datetime: 11/28/2018 08:44 Comments: FHT'S 140-155 WITH MOD LIDIA AND ACCELS NOTED Datetime: 11/28/2018 08:30 Labor Evaluation Frequency: 0 Monitor Mode: External Duration (sec)2399: 0 Resting Tone [place]: Relaxed Heart Rate FHR Baseline Rate: 150 Monitor Mode: External US Variability: Moderate 6-25 bpm Accelerations: None Decelerations: None Category: Category I Datetime: 11/28/2018 07:56 Stage of : Antepartum Assessment Type: Ongoing Assessment Maternal Assessment Level of Consciousness: Keenly Alert, Responsive DTR's/Clonus: DTRs 1+; No Clonus Headache: Denies Blurred Vision: No Respiratory Effort: Unlabored Breath Sounds, Left: Clear and Equal Breath Sounds, Right: Clear and Equal Nausea/Vomiting: Denies RUQ Epigastric Pain: Denies Lower Extremities Edema: Bilateral Lower Extremities Degree: 3+ Upper Extremities Edema: Bilateral Upper Extremities Degree: None Facial Edema: None Temperature Route: Oral Fall Risk Assessment History of Falling: (0) No Secondary Diagnosis: (15) Yes Ambulatory Aid: (0) Bedrest/Nurse Assist IV Therapy: (0) No Gait: (0) Normal/Bedrest/Immobile Mental Status: (0) Oriented to Own Ability Fall Score: 15 Fall Risk Score Definition: No Risk: No action required Labor Evaluation Frequency: x1 Monitor Mode: External Quality: Mild Heart Rate FHR Baseline Rate: 140 Monitor Mode: External US FHR Baseline Changes: No Baseline Change Variability: Moderate 6-25 bpm Accelerations: 15X15 Decelerations: Variable Category: Category II Pain Assessment Comments: pt reports "chest pain gone" Datetime: 11/28/2018 07:54 Stage of : Antepartum Datetime: 11/28/2018 07:00 Stage of : Antepartum Labor Evaluation Frequency: occasional Monitor Mode: External Duration (sec)2399: 50 Quality: Mild Pattern: Normal: <= 5 Contractions in 10 Minutes Resting Tone [place]: Relaxed Heart Rate FHR Baseline Rate: 140 Monitor Mode: External US FHR Baseline Changes: No Baseline Change Variability: Moderate 6-25 bpm Accelerations: 15X15 Decelerations: None Category: Category I Datetime: 11/28/2018 06:00 Stage of : Antepartum Breath Sounds, Left: Clear and Equal Breath Sounds, Right: Clear and Equal Nausea/Vomiting: Denies RUQ Epigastric Pain: Present Labor Evaluation Frequency: 0 Resting Tone [place]: Relaxed Heart Rate FHR Baseline Rate: 140 Monitor Mode: External US FHR Baseline Changes: No Baseline Change Variability: Moderate 6-25 bpm Accelerations: 15X15 Decelerations: None Pain Assessment Pain Scale: sleeping Datetime: 11/28/2018 05:00 Stage of : Antepartum Assessment Type: Admission Assessment Arrived By: Wheelchair Vaginal Bleeding: None Respiratory Effort: Unlabored Breath Sounds, Left: Clear and Equal Breath Sounds, Right: Clear and Equal Nausea/Vomiting: Denies RUQ Epigastric Pain: Present Lower Extremities Edema: Bilateral Lower Extremities Degree: 3+ Fall Risk Assessment History of Falling: (0) No Secondary Diagnosis: (0) No Ambulatory Aid: (0) Bedrest/Nurse Assist IV Therapy: (0) No Gait: (0) Normal/Bedrest/Immobile Mental Status: (0) Oriented to Own Ability Fall Score: 0 Fall Risk Score Definition: No Risk: No action required Labor Evaluation Frequency: 0 Resting Tone [place]: Relaxed Heart Rate FHR Baseline Rate: 140 Monitor Mode: External US FHR Baseline Changes: No Baseline Change Variability: Moderate 6-25 bpm Accelerations: 15X15 Decelerations: None Category: Category I Pain Assessment Pain Scale: sleeping Datetime: 11/28/2018 02:18 Fall Score: 0 Fall Risk Score Definition: No Risk: No action required Datetime: 11/28/2018 02:03 EGA: 34.4 Datetime: 11/22/2018 04:46 Fall Score: 0 Fall Risk Score Definition: No Risk: No action required Datetime: 11/22/2018 04:38 EGA: 33.5 Membranes Ruptured Date/Time: 12/11/2018 23:20 Amniotic Fluid Odor: None Presentation 'A': Breech
[2018-12-12 08:00] VITALS: BP 123/59; PULSE 75; RESP 20
[2018-12-12] MEDS: SENNA/DOCUSATE NA (8.6MG/50MG) TAB PO SCH ×2 (09:24→20:54)
[2018-12-12 12:00] VITALS: BP 113/58; PULSE 69; RESP 18
[2018-12-12] MEDS: LACTATED RINGER'S 1,000 ML IV SCH ×2 (12:51→20:51)
[2018-12-12 16:00] VITALS: BP 105/57; PULSE 66; RESP 17
[2018-12-12 20:00] VITALS: BP 110/51; PULSE 74; RESP 16
[2018-12-13] MEDS ORDERED: OXYCODONE/ACETAMINOPHEN (5/325) TAB PO PRN (01:31)
[2018-12-13 04:00] VITALS: BP 122/56; PULSE 84; RESP 20
[2018-12-13] MEDS: LACTATED RINGER'S 1,000 ML IV SCH ×2 (05:00→20:39)
[2018-12-13] MEDS: IBUPROFEN 800 MG TAB PO SCH ×3 (06:21→21:28)
[2018-12-13 08:00] VITALS: BP 101/54; PULSE 79; RESP 18
[2018-12-13] MEDS: SENNA/DOCUSATE NA (8.6MG/50MG) TAB PO SCH ×2 (08:47→21:28)
--- NOTE | 2018-12-13 11:09 | QN ---
Documentation Comment POD#2 is stable afebrile tolerates diet No VB +Flatus patient has wet her bed once as she couldn't make it to bathroom Vs stable Gen NAD Abd soft NT ND Dressing to be removed Gen jonatan No blood at perineum --<ambulation --->possible discharge home tomorrow KIMI PEARCE M.D. Dec 13, 2018 11:09
[2018-12-13 16:00] VITALS: BP 115/68; PULSE 78; RESP 18
[2018-12-13] MEDS: OXYCODONE/ACETAMINOPHEN (5/325) TAB PO PRN (19:44)
[2018-12-13 21:15] VITALS: BP 132/76; PULSE 82; RESP 20
[2018-12-14 04:00] VITALS: BP 164/76; PULSE 73; RESP 20
[2018-12-14] MEDS: OXYCODONE/ACETAMINOPHEN (5/325) TAB PO PRN (04:15)
[2018-12-14 05:40] VITALS: BP 149/76; PULSE 74; RESP 19
[2018-12-14] MEDS: IBUPROFEN 800 MG TAB PO SCH ×3 (05:42→21:53)
[2018-12-14 07:45] VITALS: BP 161/86; PULSE 76; RESP 18
[2018-12-14] MEDS: SENNA/DOCUSATE NA (8.6MG/50MG) TAB PO SCH ×4 (09:00→21:34)
[2018-12-14 16:00] VITALS: BP 118/61; PULSE 81; RESP 18
[2018-12-14 21:20] VITALS: BP 148/78; PULSE 78; RESP 18
[2018-12-15] MEDS: OXYCODONE/ACETAMINOPHEN (5/325) TAB PO PRN (03:23)
[2018-12-15 04:20] VITALS: BP 136/18; PULSE 66; RESP 18
[2018-12-15] MEDS: IBUPROFEN 800 MG TAB PO SCH ×2 (06:00→08:42)
[2018-12-15 08:00] VITALS: BP 146/77; PULSE 88; RESP 18
[2018-12-15] MEDS: SENNA/DOCUSATE NA (8.6MG/50MG) TAB PO SCH (08:36)
[2018-12-15] MEDS ORDERED: DIPHTH/TET/ACEL PERTUSS (ADULT) 0.5 ML VIAL IM* ONE (09:00)
--- NOTE | 2018-12-15 12:32 | PN ---
Date/Time of Note Date/Time of Note DATE: 12/15/18 TIME: 12:23 OB Subjective Subjective Subjective 12/15/2018 Postoperative day #3. Patient insisting to go home today. Insisting to go outside of the hospital. Denies any headache, blurred vision, epigastric pain or right upper quadrant pain. Noted to have some elevated blood pressure in the range of 140s 160s over 80s to 90s. Patient denies any history of hypertension in the past. No records available. Baby has been taken by [facility]. Patient is strongly request for discharge. She tolerated regular diet. Passed flatus. Ambulating. Patient denies of ear pain on any hypertension medication prior to . Had no care. Her living situation is homeless. Urine tox positive for methamphetamine during this admission. OB Objective Objective Objective General appearance: Alert and oriented x4 does not appear to be in acute distress, obese, Figid, Request to go ourside of the hospital Abdomen: Soft, fundal height 2 cm below the umbilicus and nontender. Incision related to with no evidence of drainage, hematoma or discharge Extremities: No calf tenderness, no click no edema no cord palpable Normal bowel sounds audible lungs: Clear to auscultation bilaterally CV: RRR VS - Last 72 Hours, by Label Date Temp Pulse Resp B/P (MAP) Pulse Ox O2 O2 Flow FiO2 Time Delivery Rate 12/15/18 98.7 88 18 146/77 Room Air 08:00 (100) 12/15/18 98.2 66 18 136/18 Room Air 04:20 (57) 12/14/18 98.4 78 18 148/78 Room Air 21:20 (101) 12/14/18 98.5 81 18 118/61 Room Air 16:00 (80) 12/14/18 98.2 76 18 161/86 Room Air 07:45 (111) 12/14/18 74 19 149/76 Room Air 05:40 (100) 12/14/18 98.0 73 20 164/76 Room Air 04:00 (105) 12/13/18 98.4 82 20 132/76 Room Air 21:15 (94) 12/13/18 98.0 78 18 115/68 Room Air 16:00 (84) 12/13/18 97.9 79 18 101/54 Room Air 08:00 (70) 12/13/18 98.6 84 20 122/56 Room Air 04:00 (78) 12/12/18 98.9 74 16 110/51 100 Room Air 20:00 (70) 12/12/18 98.8 66 17 105/57 100 Room Air 16:00 (73) OB Assessment/Plan Other Assessment: Postoperative #3 Status post repeat section, in labor and SROM and Breech presentation, Elevated blood pressure noted in the range of 140s to 160s over 80s. Patient is asymptomatic. Unclear whether it is a chronic hypertension or PIH. Currently asymptomatic. History of substance abuse U tox positive for methamphetamine, , baby currently in [facility] custody I strongly discussed with the patient close monitoring of blood pressures possible treatment if necessary as well as rule out severe preeclampsia based on lab and clinical picture. That needs close monitoring and inpatient in the hospital. Risk of superimposed severe preeclampsia and consequences as well as c omplications including but not limited to stroke or discussed with the patient Patient strongly desired to leave AGAINST MEDICAL ADVICE. She verbalized understanding all above risks and signed AMA, Discussion with the patient and counseling done in presence of RN and Dr, LEVI Cardoza MD Dec 15, 2018 12:32
--- NOTE | 2018-12-15 13:00 | PD.PPDC ---
SHRINKER Discharge Instruction Provider Information Physician Information December 15, 2018 Diagnosis [id number] Final Diagnosis: [id number] History of , in labor, no care, history of substance abus Condition [id number] Patient Condition: Kluaq7d Fair Diet [id number] Diet: Vqlmt2o Special Diet (Low-sodium diet) Follow-up Provider Information: Patient does not have any OB clinic. She denied having any care. [place] [address], homeless. She has been using methamphetamine. Her urine toxicology was positive for methamphetamine. She presented in active labor with history of section and breech presentation and underwent emergency section. Noted to have elevated blood pressure in the range of 140s to 160s over 80s to 90s. She denied staying in the hospital for evaluation and rule out severe preeclampsia and monitoring and optimization of blood pressure. She strongly desired to leave AGAINST MEDICAL ADVICE although extensive counseling performed by RN and physician. Risk of stroke as well as risk of permanent disability and with superimposed severe preeclampsia discussed with the patient. Patient verbalized understanding all above risks and still desired to leave AGAINST MEDICAL ADVICE. Return to clinic for [id number] CREW PERSON Instructions: Jaask6d Fever greater than 101 Worsening abdominal pain More than 2 pads per hour [id number] OB Instructions: [id number] Breast Tenderness Blurried Vision Headache [id number] Surgical Instructions: [id number] Incisional Drainage Incisional Redness LEVI VANCE MD Dec 15, 2018 13:00
--- NOTE | 2018-12-15 13:06 | DS ---
Date/Time of Note Date/Time of Note DATE: 12/15/18 TIME: 13:02 Obstetrical Discharge Record Final Diagnosis Final Diagnosis: delivered Other Final Diagnosis IUP at 36 and 4 days Insufficient care homeless Hypertension, cannot rule out chronic hypertension versus PIH History of labor Breech presentation obese 38-year-old G3, P1 with IUP at 36 weeks and 4 days and history of presented in active labor and with rupture membrane. She was noted to be 5 cm dilated with breech presentation. She underwent emergency repeat section. She had insufficient care. She had not been seen in any OB clinic since beginning of . She also had a history of substance abuse. Her urine toxicology was positive for methamphetamine. she was noted to have some elevated blood pressure in the range of 140s 160s over 80s. She was asymptomatic. She declined observation and management and optimization of blood pressure as well as rule out preeclampsia. She desired to sign AMA a lthough extensive counseling was made regarding risk of complications of severe preeclampsia including but not limited to stroke, permanent disability and ultimately . Her living status she was homeless. Baby was in [facility] custody. Section Section: Repeat Primary Indication History of prior Active labor Insufficient care Breech presentation Complications Preg induced Hypertension Augmentation: No Induction: No Rupture of Membranes: No Condition on Discharge Physical Assessment Voiding: Yes Bowel Movement: Yes Breast: Soft, non-tender Fundus: Firm Calf Tenderness: No Patient Condition: Good LEVI VANCE MD Dec 15, 2018 13:06
--- NOTE | 2018-12-16 12:04 | DELSUM ---
Delivery Summary A-C Datetime Report Generated by CPN: 12/16/2018 12:04 DELIVERY PERSONNEL Humidifier Attendant: Jovan, [place] MATERNAL INFORMATION Delivery Anesthesia: Spinal Medications in Delivery: SEE ANESTHESIA RECORDS Delivery QBL (ml): 600 Placenta Cultured: Yes Maternal Complications: Other RN Comments: NO CARE. POSITIVE FOR AMPHETAMINES LABOR SUMMARY EDC: 01/05/2019 00:00 No. Babies in Womb: 1 Attempted: No Labor Anesthesia: Intrathecal LABOR INFORMATION Reason for Induction: Not Applicable Group B Beta Strep: Not Done Antibiotics # of Doses: 2 ZITHROMAX AND ANCEF Antibiotics Time of Last Dose: 12/12/2018 00:41 Steroids Given: None Reason Steroids Not Administered: Not Applicable MEMBRANES Membranes Rupture Method: Spontaneous Rupture of Membranes: 12/11/2018 23:20 Length of Rupture (hr): 2.27 Amniotic Fluid Color: Heavy Meconium Amniotic Fluid Amount: Small Amniotic Fluid Odor: None STAGES OF LABOR Stage 3 hr: 0 Stage 3 min: -9 CSECTION DELIVERY Primary Indication: Breech Presentation CSection Urgency: Emergency CSection Incidence: Repeat Labor: Labor Elective: Nonelective CSection Incision: Lower Uterine Transverse BABY A INFORMATION Delivery Date/Time: 12/12/2018 01:36 Method of Delivery: Born in Route : No : N/A Forceps: N/A Vacuum Extraction: N/A Shoulder Dystocia : N/A SHOULDER DYSTOCIA BABY A Infant Delivery Date/Time: 12/12/2018 01:36 PRESENTATION/POSITION BABY A Presentation: Breech Cephalic Presentation: Vertex Breech Presentation: Complete PLACENTA INFORMATION BABY A Placenta Delivery Time : 12/12/2018 01:27 Placenta Method of Delivery: Manual Removal Placenta Status: Delivered SCORES BABY A Heart Rate 1 min: >100 bpm Resp Effort 1 min: Good Cry Reflex Irritability 1 min: Grimace Muscle Tone 1 min: Flaccid Color 1 min: Blue/Pale Resuscitation Effort 1 min: Tactile Stimulation SCORE 1 MIN: 5 Heart Rate 5 min: >100 bpm Resp Effort 5 min: Good Cry Reflex Irritability 5 min: Cough/Sneeze/Pulls Away Muscle Tone 5 min: Active Motion Color 5 min: Body [place], Extremit Blue Resuscitation Effort 5 min: Tactile Stimulation SCORE 5 MIN: 9 Heart Rate 10 min: >100 bpm Resp Effort 10 min: Good Cry Reflex Irritability 10 min: Cough/Sneeze/Pulls Away Muscle Tone 10 min: Active Motion Color 10 min: Body [place], Extremit Blue Resuscitation Effort 10 min: Tactile Stimulation SCORE 10 MIN: 9 INFANT INFORMATION BABY A Gestational Age at Delivery: 36.4 Gestational Status: Late - 34- 36.6 Weeks Infant Outcome : Liveborn, with signs of life Infant Condition : Stable Infant Sex: Female IDENTIFICATION/MEDS BABY A ID Band Number: [id number] ID Band Location: Right Leg; Left Arm Sensor Applied: Yes Sensor Number: [id number] Sensor Location : Cord Clamp Vitamin K Given : Not Given Erythromycin Given: Not Given WEIGHT/LENGTH BABY A Birthweight (gm): 3030 Weight (lb): 6 Infant Weight (oz): 11 Infant Length (in): 19.00 Infant Length (cm): 48.26 CORD INFORMATION BABY A No. Cord Vessels: 3 Nuchal Cord : N/A Cord pH Baby Arterial: 7.30 Cord pH Baby Venous: 7.29 Cord Blood Taken: Yes Suction: Mouth; Nose
== END 2018-12-15 11:15 | disposition left against medical advice (07) | DRG 786 ==
LOC: L-D 23:35 → OBT 23:35 → L-D 12-12 00:31 → OBT 12-12 00:31 → PP1 12-12 05:00
PROVIDERS: ADMIT Obstetrics & Gynecology; ATTEND Obstetrics & Gynecology
PROC: 3E033VJ Introduction of Other Hormone into Peripheral Vein, Percutaneous Approach (ICD-10-PCS; 2018-12-12)
PROC: 10D00Z1 Extraction of Products of Conception, Low, Open Approach (ICD-10-PCS; principal; 2018-12-12 00:30)
DX: O65.5 Obstructed labor due to abnormality of maternal pelvic organs (principal); O60.13X0 Preterm labor second trimester with preterm delivery third trimester, not applicable or unspecified; O34.211 Maternal care for low transverse scar from previous cesarean delivery; O32.1XX0 Maternal care for breech presentation, not applicable or unspecified; O99.62 Diseases of the digestive system complicating childbirth; O13.4 Gestational [pregnancy-induced] hypertension without significant proteinuria, complicating childbirth; K66.0 Peritoneal adhesions (postprocedural) (postinfection); Z3A.36 36 weeks gestation of pregnancy; Z37.0 Single live birth
CPT/HCPCS: 36415; 36600; 80307; 82803; 85025; 85610; 85730; 86592; 86850; 86900; 86901; 87340; 88307; 90715; 99464; J0690; J1100; J1885; J2274; J2370; J2405; J2590; J2765; J7120